=== PATIENT | male | born 1970 | race Caucasian/White ===

== ENCOUNTER 2016-10-10 16:39 | Emergency (ER) | payer OTHER ==
[2016-10-10 18:26] LABS: HEMOGLOBIN 12.3 gm/dl (14.0-17.5); RED BLOOD COUNT 4.48 M/UL (4.20-5.50); WHITE BLOOD COUNT 7.3 K/UL (4.5-11.0)
[2016-10-10 19:10] LABS: BUN/CREATININE RATIO 12 (0-10)
== END 2016-10-10 23:40 | disposition home or self-care (01) ==
LOC: ER1 16:39
PROVIDERS: Emergency Medicine
DX: Z03.6 Encounter for observation for suspected toxic effect from ingested substance ruled out (principal); J81.1 Chronic pulmonary edema; L03.115 Cellulitis of right lower limb; Z88.2 Allergy status to sulfonamides; Z88.5 Allergy status to narcotic agent; Z91.041 Radiographic dye allergy status
CPT/HCPCS: 36415; 71010; 73590; 80053; 80307; 82550; 82553; 83690; 83874; 84484; 85025; 85610; 85730; 93005; 93970; 96361; 96372; 96374; 96375; 99284; G0480; J0696; J1650; J1940; J7030; J7050